=== PATIENT | male | born 1975 | race Caucasian/White ===

== ENCOUNTER 2022-03-12 09:17 | Outpatient (CLI) | payer BC | END 2022-03-12 09:18 | disposition home or self-care (01) | LOC: CSHLAB 09:17 | PROVIDERS: ATTEND Internal Medicine Gastroenterology | DX: Z20.822 Contact with and (suspected) exposure to COVID-19 (principal); Z12.11 Encounter for screening for malignant neoplasm of colon | CPT/HCPCS: 87811 ==

== ENCOUNTER 2022-03-17 07:27 | Day surgery (SDC) | payer BC ==
[2022-03-14 11:40] VITALS: BMI 27.8
[2022-03-17] MEDS ORDERED: Lidocaine 1% MPF 2 ML VIAL ONE (09:09)
[2022-03-17] MEDS ORDERED: PROPOFOL 20 ML ONE ×3 (09:40→10:13)
[2022-03-17] MEDS ORDERED: ePHEDrine Sulfate 50 MG/10 ML VIAL ONE (09:40)
== END 2022-03-17 11:01 | disposition home or self-care (01) ==
LOC: CSHSDC 07:27
PROVIDERS: ATTEND Internal Medicine Gastroenterology
PROC: 0DJD8ZZ Inspection of Lower Intestinal Tract, Via Natural or Artificial Opening Endoscopic (ICD-10-PCS; principal; 2022-03-17)
DX: Z12.11 Encounter for screening for malignant neoplasm of colon (principal); K57.30 Diverticulosis of large intestine without perforation or abscess without bleeding; K64.4 Residual hemorrhoidal skin tags; Z20.822 Contact with and (suspected) exposure to COVID-19; Z88.8 Allergy status to other drugs, medicaments and biological substances
CPT/HCPCS: J2704